=== PATIENT | male | born 1995 | race Caucasian/White ===

== ENCOUNTER 2019-02-21 13:04 | Emergency (ER) | payer OTHER ==
[2019-02-21 13:13] VITALS: BP 128/74; PULSE 95; TEMP 97.9; BMI 26.6
--- NOTE | 2019-02-21 13:42 | PDOC ---
History of Present Illness - General Chief Complaint: Injury Stated Complaint: LF LEG INJURY/PAIN Time Seen by Provider: 02/21/19 13:26 - History of Present Illness Initial Comments: 02/21/19 13:40 CHIEF COMPLAINT: foot pain HISTORY OF PRESENT ILLNESS: 24 yo M with no significant PMH presents to fast track with pain to R foot s/p injury. Patient reports he pulled a drawer out of a dressed today and the drawer fell onto his left big toe. No recent travel or sick contacts. PAST MEDICAL HISTORY: Denies past medical history FAMILY HISTORY: Denies SOCIAL HISTORY: Denies tobacco, alcohol, illicit drug use. SURGICAL HISTORY: Denies ALLERGIES: No known drug allergies REVIEW OF SYSTEMS General/Constitutional: Denies fever or chills. Denies weakness, weight change. HEENT: Denies change in vision. Denies ear pain or discharge. Denies sore throat. Cardiovascular: Denies chest pain or shortness of breath. Respiratory: Denies cough, wheezing, or hemoptysis. Gastrointestinal: Denies nausea, vomiting, diarrhea or constipation. Denies rectal bleeding. Genitourinary: Denies dysuria, frequency, or change in urination. Musculoskeletal: "A dresser fell on my left foot." Skin and breasts: Denies rash or easy bruising. Neurologic: Denies headache, vertigo, loss of consciousness, or loss of sensation. Psychiatric: Denies depression or anxiety. PHYSICAL EXAM General Appearance: Well-appearing, appropriately dressed. No apparent distress , no intoxication. HEENT: EOMI, PERRLA, normal ENT inspection, normal voice, TMs normal, pharynx normal. No conjunctival pallor. No photophobia, scleral icterus. Neck: Supple. Trachea midline. No tenderness, rigidity, carotid bruit, stridor , lymphadenopathy, or thyromegaly. Respiratory/Chest: Lungs CTAB. No shortness of breath, chest tenderness, respiratory distress, accessory muscle use. No crackles, rales, rhonchi, stridor , wheezing, dullness Cardiovascular: RRR. S1, S2. No JVD, murmur, bradycardia, tachycardia. Vascular Pulses: Dorsalis-Pedis (R): 2+, Dorsalis-Pedis (L): 2+ Gastrointestinal/Abdominal: Normal bowel sounds. Abdomen soft, non-distended. No tenderness or rebound tenderness. No organomegaly, pulsatile mass, guarding , hernia, hepatomegaly, splenomegaly. Lymphatic: No adenopathy, tenderness. Musculoskeletal/Extremities: Subungal hematoma to L great toe. FROM of all extremities, normal capillary refill. Pelvis Stable. No CVA tenderness. No tenderness to extremities, pedal edema, swelling, erythema or deformity. Integumentary: Appropriate color, dry, warm. No cyanosis, erythema, jaundice or rash Neurologic: computer aide II-XII intact. Fully oriented, alert. Appropriate mood/affect. Motor strength 5/5. No appreciable EOM palsy, facial droop or sensory deficit. Past History - Past Medical History Allergies/Adverse Reactions: Allergies Allergy/AdvReac Type Severity Reaction Status Date / Time No Known Allergies Allergy Verified 02/21/19 13:13 Home Medications: Ambulatory Orders Ibuprofen 600 mg PO TID #30 tablet 02/21/19 COPD: No - Psycho Social/Smoking Cessation Hx Smoking History: Current every day smoker Number of Cigarettes Smoked Daily: 30 Information on smoking cessation initiated: No *Physical Exam - Vital Signs Last Vital Signs Temp Pulse Resp BP Pulse Ox 97.9 F 95 H 16 128/74 98 02/21/19 13:10 02/21/19 13:10 02/21/19 13:10 02/21/19 13:10 02/21/19 13:10 ED Treatment Course - RADIOLOGY Radiology Studies Ordered: Category Date Time Status FOOT-LEFT [RAD] Stat Radiology 02/21/19 13:22 Ordered Medical Decision Making - Medical Decision Making 02/21/19 13:42 24 yo M with no significant PMH presents to fast track with pain to R foot s/p injury. -foot x-ray x-ray negative for fracture. Subungal hematoma drained. post op shoe applied. Advised patient to take medication as prescribed and f/u with PCP this week. Advised patient of signs and symptoms for return to ED. Patient verbalized understanding and agrees to plan. Discharge - Discharge Information Problems reviewed: Yes Clinical Impression/Diagnosis: Crush injury, toe Qualifiers: Encounter type: initial encounter Laterality: left Qualified Code(s): S97.102A - Crushing injury of unspecified left toe(s), initial encounter Hematoma, subungual, great toe, left Qualifiers: Encounter type: initial encounter Qualified Code(s): S90.212A - Contusion of left great toe with damage to nail, initial encounter Condition: Stable Disposition: HOME - Admission No - Additional Discharge Information Prescriptions: Ibuprofen 600 mg PO TID #30 tablet - Follow up/Referral Referrals: Jason Cortés MD [Primary Care Provider] - - Patient Discharge Instructions Patient Printed Discharge Instructions: DI for Crush Injury, DI for Subungual Hematoma Additional Instructions: Please take medications as prescribed. Follow up with podiatry if symptoms persist past 1-2 weeks. If you develop any new or worsening symptoms, please return to the ER. - Post Discharge Activity Work/Back to School Note: Back to Work
== END 2019-02-21 15:04 | disposition home or self-care (01) ==
LOC: JERFT 13:04
PROC: 0H9RXZZ Drainage of Toe Nail, External Approach (ICD-10-PCS; principal; 2019-02-21)
DX: S90.212A Contusion of left great toe with damage to nail, initial encounter (principal); S97.112A Crushing injury of left great toe, initial encounter; W20.8XXA Other cause of strike by thrown, projected or falling object, initial encounter; Y93.9 Activity, unspecified; Y92.89 Other specified places as the place of occurrence of the external cause; F17.210 Nicotine dependence, cigarettes, uncomplicated
CPT/HCPCS: 11740; 73630-TC-LT; 99281-25